=== PATIENT | male | born 1990 | race Two or more races ===

== ENCOUNTER 2016-06-26 22:19 | Emergency (ER) | payer SELFPAY ==
[~2016-06-26] VITALS: Ht 180.3 cm; Wt 79.8 kg
[2016-06-26 22:45] VITALS: BP 135/82
[2016-06-26 23:20] VITALS: BP 135/82
--- NOTE | 2016-06-27 04:43 | Emergency Room Report ---
History of Present Illness General Chief Complaint: General Complaint Source: Patient Present Illness HPI 25-year-old male presents to ED for evaluation. Patient is here with girlfriend. States that they wanted to be checked for STDs. Patient denies any complaints. Denies any discharge. Denies any dysuria. States that this is just a general checkup to be safe. No other aggravating or relieving factors. Denies any other associated symptom Allergies: Coded Allergies: No Known Allergies (Unverified , 06/26/16) Patient History Past Medical History: none Past Surgical History: none Pertinent Family History: none Social History: Denies: alcohol use, drug use, smoking Immunizations: UTD Reviewed Nursing Documentation: PMH: Agreed, PSxH: Agreed Nursing Documentation-PMH Past Medical History: No Stated History Review of Systems All Other Systems: negative except mentioned in HPI Physical Exam Vital Signs Date Time Temp Pulse Resp B/P Pulse Ox O2 Delivery O2 Flow Rate FiO2 06/26/16 22:29 98.2 80 15 135/82 98 06/26/16 22:45 Room Air Sp02 EP Interpretation: reviewed, normal General Appearance: no apparent distress, alert, GCS 15, non-toxic Head: normocephalic, atraumatic Eyes: bilateral eye PERRL, bilateral eye normal inspection ENT: hearing grossly normal, normal pharynx, no angioedema, normal voice Neck: full range of motion, supple/symm/no masses Respiratory: chest non-tender, lungs clear, normal breath sounds, speaking full sentences Cardiovascular #1: regular rate, rhythm, no edema Cardiovascular #2: 2+ carotid (R), 2+ carotid (L), 2+ radial (R), 2+ radial (L) , 2+ dorsalis pedis (R), 2+ dorsalis pedis (L) Gastrointestinal: normal bowel sounds, non tender, soft, non-distended, no guarding, no rebound Rectal: deferred Genitourinary: normal inspection, no CVA tenderness Musculoskeletal: back normal, gait/station normal, normal range of motion, non- tender Neurologic: alert, oriented x3, responsive, motor strength/tone normal, sensory intact, speech normal Psychiatric: judgement/insight normal, memory normal, mood/affect normal, no suicidal/homicidal ideation Reflexes: 3+ bicep (R), 3+ bicep (L), 3+ tricep (R), 3+ tricep (L), 3+ knee (R) , 3+ knee (L) Skin: normal color, no rash, warm/dry, well hydrated Lymphatic: no adenopathy Medical Decision Making Diagnostic Impression: Primary Impression: Concern about STD in male without diagnosis ER Course 25-year-old male presents ED for STD checkup. No complaints Differential-gonorrhea, Chlamydia, syphilis Patient placed on stretcher. After initial history and physical I discussed with patient that we are not an STD clinic and routine STD testing is not indicated from the emergency room. Patient should go to a STD clinic during normal business hours. Patient states he did know and will go to an STD clinic in the future. Agreed to provide some testing at this time but explained that this is not comprehensive given that patient has no symptoms at this time GC sent and pending. RPR sent and pending. Rapid HIV negative Patient informed to call medical records a few days for his results but to followup with STD clinic from now on Diagnosis-concern for STD and male without diagnosis Stable and discharged to home. Followup with PMD/STD clinic. Return to ED if symptoms recur or worsen Labs Test 06/26/16 23:00 HIV (1&2) Antibody Rapid Negative (NEGATIVE) Last Vital Signs Date Time Temp Pulse Resp B/P Pulse Ox O2 Delivery O2 Flow Rate FiO2 06/26/16 23:20 98.2 80 15 135/82 98 Room Air Status: improved Disposition: HOME, SELF-CARE Condition: Stable Patient Instructions: Sexually Transmitted Disease, [id number] JOSIE WEBSTER M.D. Jun 27, 2016 04:43
== END 2016-06-26 23:20 | disposition home or self-care (01) ==
LOC: EMR 23:04
DX: Z11.3 Encounter for screening for infections with a predominantly sexual mode of transmission (principal)
CPT/HCPCS: 86592; 86703; 87590; 99283

== ENCOUNTER 2016-08-24 12:07 | Emergency (ER) | payer OTHER ==
[~2016-08-24] VITALS: Ht 182.9 cm; Wt 72.6 kg
[2016-08-24] MEDS ORDERED: ACYCLOVIR400 MG ORAL (12:53)
[2016-08-24] MEDS ORDERED: BACITRACIN15 GM TOPIC (12:53)
[2016-08-24 13:01] VITALS: BP 122/73
--- NOTE | 2016-08-24 20:46 | Emergency Room Report ---
History of Present Illness General Chief Complaint: Earache Source: Patient Present Illness [facility] The patient is a 25-year-old male presenting for left ear pain and a genital rash. He noticed pain to the left ear several months prior. He states that he continues to pick at it and clear fluid is released. Pain is described as a 5/ 10 dull ache and does not radiate. Pain worse with touch. He denies any other DC. He denies changes in hearing. He also admits to a genital rash which noticed one week prior. Denies any pain or itching. He states that he has been essentially active with one female partner for the past year. He denies any symptoms including pain, discharge, dysuria, hematuria, N, V, F, chills Allergies: Coded Allergies: No Known Allergies (Unverified , 06/26/16) Patient History Past Medical History: see triage record Pertinent Family History: none Reviewed Nursing Documentation: PMH: Agreed, PSxH: Agreed Nursing Documentation-PMH Past Medical History: No Stated History Review of Systems All Other Systems: negative except mentioned in HPI Physical Exam Vital Signs Date Time Temp Pulse Resp B/P Pulse Ox O2 Delivery O2 Flow Rate FiO2 08/24/16 12:24 97.9 72 17 122/73 99 Room Air Sp02 EP Interpretation: reviewed, normal General Appearance: no apparent distress, alert, GCS 15, non-toxic Head: normocephalic, atraumatic Eyes: bilateral eye PERRL, bilateral eye normal inspection ENT: hearing grossly normal, normal pharynx, no angioedema, normal voice, TMs + canals normal, uvula midline, other - anterior to L ear there is an abrasion with scab formation. Neck: full range of motion, supple/symm/no masses Respiratory: chest non-tender, lungs clear, normal breath sounds, speaking full sentences Genitourinary: other - groups of vesicles at the base of the penis and proximal penile shaft Musculoskeletal: back normal, gait/station normal, normal range of motion, non- tender Neurologic: alert, oriented x3, responsive, motor strength/tone normal, sensory intact, speech normal Psychiatric: judgement/insight normal, memory normal, no suicidal/homicidal ideation, anxious Skin: warm/dry, well hydrated, other - groups of vesicles at the base of the penis and proximal penile shaft Lymphatic: no adenopathy Medical Decision Making PA Attestation Dr. Smith is my supervising physician. Patient management was discussed with my supervising physician Diagnostic Impression: Primary Impression: Genital herpes Qualified Codes: A60.00 - Herpesviral infection of urogenital system, unspecified Additional Impression: Ear abrasion Qualified Codes: S00.412A - Abrasion of left ear, initial encounter ER Course The patient is a 25-year-old male presenting for left ear pain and a genital rash. Differential diagnosis include but not limited to abrasion, abscess, otitis externa, otitis media, STD, among others PE: vitals WNL. Pt appears anxious. HEENT: L ear unremarkable. TM intact. No erythema or edema. EAC is clear. Ear itself is non tender. There is an abrasion 3cm anterior to the ear with overlying scab. No DC. No fluctuance. : groups of vesicles at the base of the penis and proximal penile shaft. Non tender. No DC. No scrotal edema. Pt will be DC'ed home with acyclovir and is given locations to have STD check. ER precautions given Last Vital Signs Date Time Temp Pulse Resp B/P Pulse Ox O2 Delivery O2 Flow Rate FiO2 08/24/16 13:01 97.9 17 122/73 99 Room Air 08/24/16 12:45 89 Status: improved Disposition: HOME, SELF-CARE Condition: Improved Scripts Bacitracin (Bacitracin) 28.4 Gm Oint...g. 1 APPLIC TOPIC THREE TIMES A DAY, #28 GM Prov: FABRIZIO ZENG 08/24/16 Acyclovir* (ACYCLOVIR*) 400 Mg Tablet 400 MG ORAL Q8HR, #30 TAB Prov: FABRIZIO ZENG 08/24/16 Patient Instructions: Genital Herpes Additional Instructions: I discussed my findings with the patient. All questions and concerns have been answered. Treatment and medication compliance have been addressed. I advised the patient that they need to follow up with PMD in 3-5 days. Return to ED if symptoms worsen, new symptoms arise, or if needed for any reason. Patient verbalized understanding of discharge instructions. The patient is given instructions for STD testing FABRIZIO ZENG August 24, 2016 20:46
== END 2016-08-24 13:45 | disposition home or self-care (01) ==
LOC: EMR 12:25
DX: A60.00 Herpesviral infection of urogenital system, unspecified (principal); S00.412A Abrasion of left ear, initial encounter; X58.XXXA Exposure to other specified factors, initial encounter; Y92.89 Other specified places as the place of occurrence of the external cause
CPT/HCPCS: 99284